=== PATIENT | male | born 1985 | race Two or more races ===

== ENCOUNTER 2022-08-26 21:51 | Emergency (ER) | payer SELFPAY ==
[~2022-08-26] VITALS: Ht 165.1 cm; Wt 76.0 kg
[~2022-08-26 21:51] MED LIST: [UNRECOGNIZED DRUG - REMARK]
[2022-08-26 21:59] VITALS: BP 134/71
[2022-08-26] MEDS ORDERED: ACET-3385 PO (22:02)
[2022-08-26] MEDS ORDERED: IBUP-1492 PO (22:02)
[2022-08-26] MEDS ORDERED: IBUPROFEN 600 MG TABLET PO ONE (22:45)
[2022-08-26] MEDS: HydrOXYzine PAMOATE 50 MG CAPSULE PO ONE ×2 (23:07→23:11)
== END 2022-08-27 01:28 | disposition home or self-care (01) ==
LOC: EMS 22:03
DX: S83.92XA Sprain of unspecified site of left knee, initial encounter (principal); F41.9 Anxiety disorder, unspecified; R00.0 Tachycardia, unspecified; X58.XXXA Exposure to other specified factors, initial encounter; Y93.89 Activity, other specified; Y92.89 Other specified places as the place of occurrence of the external cause; Y99.8 Other external cause status
CPT/HCPCS: 99283